=== PATIENT | male | born 2000 | race Caucasian/White ===

== ENCOUNTER 2024-02-23 13:05 | Emergency (ER) | payer BC ==
[~2024-02-23] VITALS: Ht 175.3 cm; Wt 68.0 kg
[2024-02-23 13:14] VITALS: O2SAT 100
[2024-02-23] MEDS ORDERED: ACETAMINOPHEN 325MG TABLET PO ONE (13:30)
[2024-02-23] MEDS ORDERED: ONDANSETRON 4MG ODT PO ONE (13:30)
[2024-02-23 14:15] LABS: HEMATOCRIT. 48.3 % (42.0-52.0); MEAN CORPUSCULAR HEMOGLOBIN 30.8 pg (28.0-32.0); MEAN CORPUSCULAR HGB CONC 33.1 g/dL (31.0-37.0); MEAN PLATELET VOLUME 7.7 fl (7.4-10.4); PLATELET 269 x1000/uL (130-400); RED BLOOD CELL COUNT 5.19 mill/uL (4.7-6.1); RED CELL DISTRIBUTION WIDTH 12.9 % (11.6-14.6); WHITE BLOOD COUNT 7.9 x1000/uL (4.5-11.0)
[2024-02-23 14:20] LABS: DIFFERENTIAL COMMENT 1
[2024-02-23 14:21] LABS: CHLORIDE 105 mEq/L (98-107); POTASSIUM 4.2 mEq/L (3.5-5.1); SODIUM 142 mEq/L (136-145)
[2024-02-23 14:22] LABS: CALCIUM 10.3 mg/dL (8.7-10.4); CARBON DIOXIDE 26 mEq/L (21-32)
[2024-02-23 14:27] LABS: GLUCOSE 136 mg/dL (70-105); UREA NITROGEN BLOOD 19 mg/dL (9-23)
[2024-02-23 14:29] LABS: ALANINE AMINOTRANSFERASE 13 IU/L (10-49); ALBUMIN 5.1 g/dL (3.2-4.8); ASPARTATE AMINOTRANSFERASE 19 IU/L (<34); BILIRUBIN DIRECT 0.6 mg/dL (<=3.0)
[2024-02-23 14:30] LABS: BILIRUBIN TOTAL 2.1 mg/dL (0.1-1.0); PROTEIN TOTAL 7.8 g/dL (6.0-8.3)
[2024-02-23 15:48] LABS: PLATELET ESTIMATE NORMAL
[2024-02-23 17:41] LABS: CLARITY URINE CLEAR (CLEAR); COLOR URINE YELLOW (YELLOW); GLUCOSE URINE NEGATIVE (NEGATIVE); KETONES URINE 4+ (NEGATIVE); LEUKOCYTE ESTERASE URINE TRACE (NEGATIVE); NITRITE URINE NEGATIVE (NEGATIVE); OCCULT BLOOD URINE NEGATIVE (NEGATIVE); PROTEIN URINE 1+ (NEGATIVE)
[2024-02-23 17:57] LABS: BACTERIA URINE NONE SEEN; RBC URINE NONE SEEN /hpf (0-2); SQUAMOUS EPITHELIAL CELL URINE RARE /lpf (RARE/1+); WBC URINE 0-2 /hpf (0-2)
[2024-02-23] MEDS: ACETAMINOPHEN 325MG TABLET PO NR (17:59)
[2024-02-23] MEDS: ONDANSETRON 4MG ODT PO NR (18:00)
[2024-02-23] MEDS ORDERED: ONDA4TAB50 MT (18:12)
[2024-02-23 18:55] VITALS: BP 134/68; PULSE 90; RESP 16; TEMP 37.11408; O2SAT 100
== END 2024-02-23 18:57 | disposition home or self-care (01) ==
LOC: ER 13:15
DX: A08.4 Viral intestinal infection, unspecified (principal)
CPT/HCPCS: 99283; 80076; 80048; 81003; 83690; 85025; 36415; Q0162